=== PATIENT | female | born 1990 | race American Indian/Alaskan Native ===

== ENCOUNTER 2017-04-09 12:41 | Inpatient (IN) | payer MEDICAID ==
[2017-04-09 13:03] LABS: Urine Drugs of Abuse Note Disclamer
[2017-04-09] MEDS ORDERED: ZOFRAN ONE (13:22)
--- NOTE | 2017-04-09 13:28 | History and Physical Report ---
History of Present Illness Chief complaint: I.... I dont feel good, can i have pain medicine History of present illness: 27 YO Female with SLE, HTN, RI, OA, Raynauds Disease presents to ED for evaluation. Pt unable to provide detailed history, but history taken from family and ED staff. Pt family report that patient has been feeling ill for the past day with worsening symptoms over the past 4 hours. Pt had been complaining of chest pain and difficulty breathing earlier in the day, and was found by family to be confused and minimally responsive. EMS notified, and upon arrival EMS reports that the patient was hypotensive and lethargic, and was also noted to be vomiting as well. Patient acknowledges subjective fever, but denies chills, syncope, difficulty breathing, BPBPR, Falls, Trauma, productive cough, or recent ill contacts,or taking any pain medication today. Past History Past Medical History: GERD, hypertension, other (Lupus, Raynauds Disease) Past Surgical History: No surgical history, Other (reviewed) Social history: single, lives with family. denies: smoking, alcohol abuse, prescription drug abuse, IV drug use Family history: diabetes, hypertension Medications and Allergies Allergies Allergy/AdvReac Type Severity Reaction Status Date / Time No Known Allergies Allergy Verified 11/27/14 07:31 Home Medications Medication Instructions Recorded Confirmed Last Taken Type Aspirin [Aspirin BABY CHEW TAB] 81 mg PO ONCE 10/25/13 05/24/15 11/26/14 21:00 History NIFEdipine [NIFEdipine ER] 60 mg PO DAILY 10/25/13 05/24/15 02/13/15 History hydrOXYzine HCL [Atarax] 25 mg PO BID 11/27/14 05/24/15 02/13/15 History oxyCODONE /ACETAMINOPHEN [Percocet 1 tab PO Q6HR PRN #14 tablet 11/27/14 Unknown Rx 5/325 mg] predniSONE [Deltasone] 20 mg PO BID #8 tablet 11/27/14 05/24/15 02/12/15 Rx Gabapentin 300 mg PO HS 02/13/15 05/24/15 Unknown History Hydroxychloroquine 200 mg PO DAILY 02/13/15 05/24/15 02/13/15 History Mycophenolate [Cellcept] 1,000 mg PO BID 02/13/15 05/24/15 02/12/15 History Review of Systems ROS unobtainable: due to mental status Exam - Constitutional Vitals: Temp Pulse Resp BP Pulse Ox 98.4 F 94 H 12 133/94 95 04/09/17 12:56 04/09/17 12:49 04/09/17 12:49 04/09/17 12:47 04/09/17 12:47 General appearance: Present: mild distress, obese - EENT Eyes: Present: PERRL ENT: hearing intact, clear oral mucosa - Neck Neck: Present: supple, normal ROM - Respiratory Respiratory effort: labored Respiratory: bilateral: diminished - Cardiovascular Rhythm: other (tachycardic) Heart Sounds: Present: S1 & S2. Absent: rub, click - Extremities Extremities: pulses symmetrical, No edema Extremity abnormal: edema, other (capillary refills: 4 seconds) Peripheral Pulses: within normal limits - Abdominal General gastrointestinal: Present: soft, distended, hypoactive bowel sounds. Absent: hepatomegaly, splenomegaly, mass, hernia Female genitourinary: Present: normal - Integumentary Integumentary: Present: clear, dry, decreased turgor - Musculoskeletal Musculoskeletal: generalized weakness - Psychiatric Psychiatric: no intact judgment & insight, no memory intact - Neurologic Neurologic: CNII-XII intact, moves all extremities, no gait normal Results - Labs CBC & Chem 7: 04/09/17 13:19 04/09/17 13:19 Assessment and Plan - Patient Problems (1) Sepsis Current Visit: Yes Status: Acute Qualifiers: Sepsis type: S Plan to address problem: Iv abx, IVF, supportive care, monitor uop q shift, IVF bolus as per protocol, serial lactic acid level, blood cultures, (2) Lactic acidosis Current Visit: Yes Status: Acute Plan to address problem: IVF, supportive care, repeat lactic acid level (3) ARF (acute renal failure) Current Visit: Yes Status: Acute Qualifiers: Acute renal failure type: A Plan to address problem: IVF replacement, monitor uop q shift, positive fluid balance, urine electrolytes (4) Toxic encephalopathy Current Visit: Yes Status: Acute Plan to address problem: Treat sepsis, supportive care, neuro checks (5) Lupus (systemic lupus erythematosus) Current Visit: No Status: Acute Qualifiers: Systemic lupus erythematosus type: S Systemic lupus erythematosus organ involvement: S Plan to address problem: Resume home medications, Cellcept, steroids, supportive care. (6) DVT prophylaxis Current Visit: No Status: Acute
[2017-04-09 13:29] LABS: ABG Base Excess -6.8 mmol/L (-2.0-3.0); ABG HCO3 12.3 mmol/L (20.0-26.0); ABG Oxygen Saturation 99.2 % (95.0-99.0); ABG PCO2 14.7 mm Hg; ABG PH 7.542 pH Units (7.350-7.450); ABG PO2 162.5 mm Hg (80.0-90.0)
[2017-04-09 13:33] LABS: Basophils % (Auto) 0.9 % (0.0-1.8); Eosinophils % (Auto) 0.2 % (0.0-4.3); Hematocrit 44.1 % (30.3-42.9); Mean Corpuscular HGB Conc 32 % (30-34); Mean Corpuscular Hemoglobin 27 pg (28-32); Mean Corpuscular Volume 85 fl (79-97); Platelet Count 470 K/mm3 (140-440); Red Blood Count 5.16 M/mm3 (3.65-5.03); White Blood Count 12.5 K/mm3 (4.5-11.0)
[2017-04-09] MEDS ORDERED: ZOFRAN IV ONE (13:33)
--- NOTE | 2017-04-09 13:41 | Emergency Department Report ---
ED Altered Mental Status HPI - General Chief Complaint: Altered Mental Status Stated Complaint: ROBERT/LUPUS Time Seen by Provider: 04/09/17 12:47 Source: EMS Mode of arrival: Stretcher Limitations: Altered Mental Status - History of Present Illness Initial Comments: 27-year-old female presents to the emergency department via EMS for evaluation of altered mental status. EMS states that they found the patient minimally responsive at home. Per report, the patient had been complaining of chest pain and difficulty breathing earlier in the day. EMS reports that the patient was hypotensive on arrival. She was also noted to be vomiting as well. Patient denies taking any pain medication today. When asked if she isn't in any pain at this time, the patient places her hands on her abdomen. Further history is unable to be obtained from patient due to her clinical condition. MD Complaint: altered mental status -: Gradual, This morning Severity: moderate Consistency of Symptoms: waxing and waning Context: unknown Associated Symptoms: chest pain, nausea/vomiting, shortness of breath Treatments Prior to Arrival: IV fluid, oxygen - Related Data Home Medications Medication Instructions Recorded Confirmed Last Taken Aspirin [Aspirin BABY CHEW TAB] 81 mg PO ONCE 10/25/13 05/24/15 11/26/14 21:00 NIFEdipine [NIFEdipine ER] 60 mg PO DAILY 10/25/13 05/24/15 02/13/15 hydrOXYzine HCL [Atarax] 25 mg PO BID 11/27/14 05/24/15 02/13/15 Gabapentin 300 mg PO HS 02/13/15 05/24/15 Unknown Hydroxychloroquine 200 mg PO DAILY 02/13/15 05/24/15 02/13/15 Mycophenolate [Cellcept] 1,000 mg PO BID 02/13/15 05/24/15 02/12/15 Previous Rx's Medication Instructions Recorded Last Taken Type oxyCODONE /ACETAMINOPHEN [Percocet 1 tab PO Q6HR PRN #14 tablet 11/27/14 Unknown Rx 5/325 mg] predniSONE [Deltasone] 20 mg PO BID #8 tablet 11/27/14 02/12/15 Rx Allergies Allergy/AdvReac Type Severity Reaction Status Date / Time No Known Allergies Allergy Verified 11/27/14 07:31 ED Review of Systems ROS: Stated complaint: ROBERT/LUPUS Other details as noted in HPI Comment: Unobtainable due to pts medical conditions ED Past Medical Hx - Past Medical History Previous Medical History?: Yes Hx Hypertension: Yes Hx Heart Attack/AMI: Yes ([place] 2011,) Hx Congestive Heart Failure: No Hx Diabetes: No Hx Deep Vein Thrombosis: No Hx Pulmonary Embolism: No Hx Renal Disease: No Hx Sickle Cell Disease: No Hx Arthritis: Yes Hx Kidney Stones: No Hx Asthma: No Hx COPD: No Hx Tuberculosis: No Hx HIV: No Additional medical history: lupus, Raynaud Disease - Surgical History Past Surgical History?: Yes Hx Coronary Stent: No Hx Open Heart Surgery: No Hx Pacemaker: No Hx Internal Defibrillator: No Hx Cholecystectomy: No Hx Appendectomy: No Hx Breast Surgery: No Additional Surgical History: x4 - Social History Smoking Status: Unknown if ever smoked - Medications Home Medications: Home Medications Medication Instructions Recorded Confirmed Last Taken Type Aspirin [Aspirin BABY CHEW TAB] 81 mg PO ONCE 10/25/13 05/24/15 11/26/14 21:00 History NIFEdipine [NIFEdipine ER] 60 mg PO DAILY 10/25/13 05/24/15 02/13/15 History hydrOXYzine HCL [Atarax] 25 mg PO BID 11/27/14 05/24/15 02/13/15 History oxyCODONE /ACETAMINOPHEN [Percocet 1 tab PO Q6HR PRN #14 tablet 11/27/14 Unknown Rx 5/325 mg] predniSONE [Deltasone] 20 mg PO BID #8 tablet 11/27/14 05/24/15 02/12/15 Rx Gabapentin 300 mg PO HS 02/13/15 05/24/15 Unknown History Hydroxychloroquine 200 mg PO DAILY 02/13/15 05/24/15 02/13/15 History Mycophenolate [Cellcept] 1,000 mg PO BID 02/13/15 05/24/15 02/12/15 History ED Physical Exam - General Limitations: Altered Mental Status General appearance: in no apparent distress, lethargic - Head Head exam: Present: atraumatic, normocephalic - Eye Eye exam: Present: normal appearance, PERRL, EOMI - ENT ENT exam: Present: normal exam, normal orophraynx, mucous membranes moist - Neck Neck exam: Present: normal inspection, full ROM. Absent: tenderness - Respiratory Respiratory exam: Present: normal lung sounds bilaterally. Absent: respiratory distress - Cardiovascular Cardiovascular Exam: Present: regular rate, normal rhythm, normal heart sounds - GI/Abdominal GI/Abdominal exam: Present: soft, tenderness (patient moans with palpation of her abdomen in all quadrants), normal bowel sounds. Absent: distended - Extremities Exam Extremities exam: Present: normal inspection, full ROM. Absent: tenderness - Back Exam Back exam: Present: normal inspection, full ROM. Absent: tenderness - Neurological Exam Neurological exam: Present: altered. Absent: motor sensory deficit - Skin Skin exam: Present: warm, diaphoretic ED Course Vital Signs 04/09/17 04/09/17 04/09/17 12:36 12:40 12:47 Temperature Pulse Rate 94 H Respiratory 24 Rate Blood Pressure 133/94 133/94 O2 Sat by Pulse 100 100 95 Oximetry 04/09/17 04/09/17 04/09/17 12:49 12:50 12:56 Temperature 98.4 F Pulse Rate 94 H 95 H Respiratory 12 33 H Rate Blood Pressure 133/97 O2 Sat by Pulse Oximetry 04/09/17 04/09/17 04/09/17 13:00 13:10 13:20 Temperature Pulse Rate 92 H 95 H 94 H Respiratory 32 H 35 H 29 H Rate Blood Pressure 133/97 119/79 119/79 O2 Sat by Pulse 100 99 Oximetry 04/09/17 04/09/17 04/09/17 13:30 13:40 13:43 Temperature Pulse Rate 100 H 89 Respiratory 24 17 16 Rate Blood Pressure 119/79 170/89 O2 Sat by Pulse 100 99 Oximetry 04/09/17 04/09/17 04/09/17 13:58 14:00 14:11 Temperature Pulse Rate 96 H 101 H Respiratory 22 25 H Rate Blood Pressure 133/97 119/84 142/86 O2 Sat by Pulse 98 100 99 Oximetry 04/09/17 04/09/17 14:20 14:30 Temperature Pulse Rate Respiratory Rate Blood Pressure 142/86 142/86 O2 Sat by Pulse 100 96 Oximetry - Lab Data Result diagrams: 04/09/17 13:19 04/09/17 13:19 Lab Results 04/09/17 04/09/17 04/09/17 Range/Units 12:42 13:14 13:19 WBC 12.5 H (4.5-11.0) K/mm3 RBC 5.16 H (3.65-5.03) M/mm3 Hgb 14.0 (10.1-14.3) gm/dl Hct 44.1 H (30.3-42.9) % MCV 85 (79-97) fl MCH 27 L (28-32) pg MCHC 32 (30-34) % RDW 15.0 (13.2-15.2) % Plt Count 470 H (140-440) K/mm3 Lymph % (Auto) 11.9 L (13.4-35.0) % [place] % (Auto) 8.2 H (0.0-7.3) % Eos % (Auto) 0.2 (0.0-4.3) % Baso % (Auto) 0.9 (0.0-1.8) % Lymph # 1.5 (1.2-5.4) K/mm3 [place] # 1.0 H (0.0-0.8) K/mm3 Eos # 0.0 (0.0-0.4) K/mm3 Baso # 0.1 (0.0-0.1) K/mm3 Seg Neutrophils % 78.8 H (40.0-70.0) % Seg Neutrophils # 9.8 H (1.8-7.7) K/mm3 PT (12.2-14.9) Sec. INR (0.87-1.13) APTT (24.2-36.6) Sec. ABG pH 7.542 H (7.350-7.450) pH Units ABG pCO2 14.7 mm Hg ABG pO2 162.5 H (80.0-90.0) mm Hg ABG HCO3 12.3 L (20.0-26.0) mmol/L ABG O2 Saturation 99.2 H (95.0-99.0) % ABG O2 Content 19.7 (0.0-44) ABG Base Excess -6.8 L (-2.0-3.0) mmol/L ABG Hemoglobin 14.2 (12.0-16.0) gm/dl ABG Carboxyhemoglobin 2.1 (0.0-5.0) % ABG Methemoglobin 0.5 (0.0-1.5) % Oxyhemoglobin 96.7 (95.0-99.0) % FiO2 32 % Sodium (137-145) mmol/L Potassium (3.6-5.0) mmol/L Chloride (98-107) mmol/L Carbon Dioxide (22-30) mmol/L Anion Gap mmol/L BUN (7-17) mg/dL Creatinine (0.7-1.2) mg/dL Estimated GFR ml/min BUN/Creatinine Ratio % Glucose (65-100) mg/dL Lactic Acid (0.7-2.0) mmol/L Calcium (8.4-10.2) mg/dL Total Bilirubin (0.1-1.2) mg/dL AST (5-40) units/L ALT (7-56) units/L Alkaline Phosphatase (35-129) units/L Troponin T (0.00-0.029) ng/mL Total Protein (6.3-8.2) g/dL Albumin (3.9-5) g/dL Albumin/Globulin Ratio % HCG, Qual (Negative) Salicylates (2.8-20.0) mg/dL Urine Opiates Screen Presumptive negative Urine Methadone Screen Presumptive negative Acetaminophen (10.0-30.0) ug/mL Ur Barbiturates Screen Presumptive negative Ur Phencyclidine Scrn Presumptive negative Ur Amphetamines Screen Presumptive negative U Benzodiazepines Scrn Presumptive negative Urine Cocaine Screen Presumptive negative U Marijuana (THC) Screen Presumptive positive Drugs of Abuse Note Disclamer 04/09/17 04/09/17 04/09/17 Range/Units 13:19 13:19 13:19 WBC (4.5-11.0) K/mm3 RBC (3.65-5.03) M/mm3 Hgb (10.1-14.3) gm/dl Hct (30.3-42.9) % MCV (79-97) fl MCH (28-32) pg MCHC (30-34) % RDW (13.2-15.2) % Plt Count (140-440) K/mm3 Lymph % (Auto) (13.4-35.0) % [place] % (Auto) (0.0-7.3) % Eos % (Auto) (0.0-4.3) % Baso % (Auto) (0.0-1.8) % Lymph # (1.2-5.4) K/mm3 [place] # (0.0-0.8) K/mm3 Eos # (0.0-0.4) K/mm3 Baso # (0.0-0.1) K/mm3 Seg Neutrophils % (40.0-70.0) % Seg Neutrophils # (1.8-7.7) K/mm3 PT 13.1 (12.2-14.9) Sec. INR 0.95 (0.87-1.13) APTT 28.0 (24.2-36.6) Sec. ABG pH (7.350-7.450) pH Units ABG pCO2 mm Hg ABG pO2 (80.0-90.0) mm Hg ABG HCO3 (20.0-26.0) mmol/L ABG O2 Saturation (95.0-99.0) % ABG O2 Content (0.0-44) ABG Base Excess (-2.0-3.0) mmol/L ABG Hemoglobin (12.0-16.0) gm/dl ABG Carboxyhemoglobin (0.0-5.0) % ABG Methemoglobin (0.0-1.5) % Oxyhemoglobin (95.0-99.0) % FiO2 % Sodium 137 (137-145) mmol/L Potassium 4.3 (3.6-5.0) mmol/L Chloride 100.6 (98-107) mmol/L Carbon Dioxide 14 L (22-30) mmol/L Anion Gap 27 mmol/L BUN 26 H (7-17) mg/dL Creatinine 2.6 H (0.7-1.2) mg/dL Estimated GFR 26 ml/min BUN/Creatinine Ratio 10.00 % Glucose 112 H (65-100) mg/dL Lactic Acid 3.00 H* (0.7-2.0) mmol/L Calcium 9.4 (8.4-10.2) mg/dL Total Bilirubin 0.60 (0.1-1.2) mg/dL AST 18 (5-40) units/L ALT 11 (7-56) units/L Alkaline Phosphatase 93 (35-129) units/L Troponin T < 0.010 (0.00-0.029) ng/mL Total Protein 8.9 H (6.3-8.2) g/dL Albumin 3.8 L (3.9-5) g/dL Albumin/Globulin Ratio 0.7 % HCG, Qual (Negative) Salicylates (2.8-20.0) mg/dL Urine Opiates Screen Urine Methadone Screen Acetaminophen (10.0-30.0) ug/mL Ur Barbiturates Screen Ur Phencyclidine Scrn Ur Amphetamines Screen U Benzodiazepines Scrn Urine Cocaine Screen U Marijuana (THC) Screen Drugs of Abuse Note 04/09/17 04/09/17 04/09/17 Range/Units 13:19 13:19 13:19 WBC (4.5-11.0) K/mm3 RBC (3.65-5.03) M/mm3 Hgb (10.1-14.3) gm/dl Hct (30.3-42.9) % MCV (79-97) fl MCH (28-32) pg MCHC (30-34) % RDW (13.2-15.2) % Plt Count (140-440) K/mm3 Lymph % (Auto) (13.4-35.0) % [place] % (Auto) (0.0-7.3) % Eos % (Auto) (0.0-4.3) % Baso % (Auto) (0.0-1.8) % Lymph # (1.2-5.4) K/mm3 [place] # (0.0-0.8) K/mm3 Eos # (0.0-0.4) K/mm3 Baso # (0.0-0.1) K/mm3 Seg Neutrophils % (40.0-70.0) % Seg Neutrophils # (1.8-7.7) K/mm3 PT (12.2-14.9) Sec. INR (0.87-1.13) APTT (24.2-36.6) Sec. ABG pH (7.350-7.450) pH Units ABG pCO2 mm Hg ABG pO2 (80.0-90.0) mm Hg ABG HCO3 (20.0-26.0) mmol/L ABG O2 Saturation (95.0-99.0) % ABG O2 Content (0.0-44) ABG Base Excess (-2.0-3.0) mmol/L ABG Hemoglobin (12.0-16.0) gm/dl ABG Carboxyhemoglobin (0.0-5.0) % ABG Methemoglobin (0.0-1.5) % Oxyhemoglobin (95.0-99.0) % FiO2 % Sodium (137-145) mmol/L Potassium (3.6-5.0) mmol/L Chloride (98-107) mmol/L Carbon Dioxide (22-30) mmol/L Anion Gap mmol/L BUN (7-17) mg/dL Creatinine (0.7-1.2) mg/dL Estimated GFR ml/min BUN/Creatinine Ratio % Glucose (65-100) mg/dL Lactic Acid (0.7-2.0) mmol/L Calcium (8.4-10.2) mg/dL Total Bilirubin (0.1-1.2) mg/dL AST (5-40) units/L ALT (7-56) units/L Alkaline Phosphatase (35-129) units/L Troponin T (0.00-0.029) ng/mL Total Protein (6.3-8.2) g/dL Albumin (3.9-5) g/dL Albumin/Globulin Ratio % HCG, Qual Negative (Negative) Salicylates < 0.3 L (2.8-20.0) mg/dL Urine Opiates Screen Urine Methadone Screen Acetaminophen < 15.0 (10.0-30.0) ug/mL Ur Barbiturates Screen Ur Phencyclidine Scrn Ur Amphetamines Screen U Benzodiazepines Scrn Urine Cocaine Screen U Marijuana (THC) Screen Drugs of Abuse Note - EKG Data -: EKG Interpreted by Ma EKG shows normal: sinus rhythm, axis, intervals, QRS complexes, ST-T waves Rate: normal When compared to previous EKG there are: previous EKG unavailable Interpretation: normal EKG - Radiology Data Radiology results: report reviewed, image reviewed CT of the head is read as normal. CT of the chest shows nonspecific bilateral axillary adenopathy. CT of the abdomen and pelvis shows nonspecific adenopathy and multiple locations in the abdomen. The number of notes seen throughout the chest and abdomen are worrisome, lymphoma would be the primary diagnostic consideration. - Medical Decision Making Lab and imaging results reviewed. IV fluids being administered. Patient had multiple episodes of bilious vomiting. Patient is to be admitted by the hospitalist. - Differential Diagnosis drug intoxication, ACS, bowel obstruction, mesenteric ischemia Critical care attestation.: If time is entered above; I have spent that time in minutes in the direct care of this critically ill patient, excluding procedure time. ED Disposition Clinical Impression: Elevated lactic acid level, Somnolence Acute on chronic renal failure Qualifiers: Acute renal failure type: with acute tubular necrosis Chronic kidney disease stage: unspecified stage Qualified Code(s): N17.0 - Acute kidney failure with tubular necrosis; N18.9 - Chronic kidney disease, unspecified Disposition: OP ADMIT IP TO THIS HOSP Is pt being admited?: Yes Condition: Stable Referrals: PRIMARY CAREMD [Primary Care Provider] - 3-5 Days Time of Disposition: 16:02
--- NOTE | 2017-04-09 13:44 | Admit Criteria Form ---
Admission Criteria Documentation: MENTAL STATUS CHANGE Clinical Indications for Inpatient Care (Place 'X' for any and all applicable criteria): Ongoing inpatient care may be needed for 1 or more of the following(1)(2)(3)(5)( 6): [X ]I. Suspected serious etiology (eg, medical disorder, [employer] event) of altered mental status [ ]II. Danger to self or others not manageable at lower level of care [ ]III. Grave disability (eg, inability to perform self care necessary at lower level of care) [ ]IV. Agitation or inappropriate behavior interfering with care for primary condition (eg, attempting to discontinue lines or drains prematurely, unable to cooperate with respiratory care) [ ]V. Delirium [A] [D][E] as described by 1 or more of the following(26): [ ]a) Delirium due to alcohol or sedative [F] withdrawal [ ]b) Delirium of uncertain etiology that has not responded to appropriate empiric treatment [ ]c) Delirium that prevents performance of a life-sustaining function (eg, feeding or hydrating oneself) [ X]. General contraindications and/or Inappropriate clinical situations for Observational Care in patients with Mental Status Change, when ANY ONE of the following is required: [X ]a) Prediction of prolongation of LOS based on ANY ONE of the following may be considered as a contraindication for observational care 2, 3, 4, 5, 6, 7, 8, 9, 10, 11 [ ]i) Age > 65 yrs. [ X]ii) Patient arriving by ambulance [ ]iii) Patient with high acuity [ ]iv) Patient requiring vital sign monitoring [ ]v) Patient on IV medication [ ]b) Systolic blood pressures greater than or equal to 180mmHg 3, 12 [ ]c) Patient with altered mental status including delirium and other alteration of consciousness, (3) [ ]d) Patient whose discharge disposition will be to a fpc home or rehabilitation home should not be managed in Emergency Department Observation Unit. CMS rule requires 3 days hospital stay before such placement.3,13 [ ]e) Patient with failure to thrive due to broad array of etiologies 3,16,17 [ ]f) Inability to ambulate 3,14 Extended stay beyond goal length of stay for the primary condition may be needed until ALL of the following are present(3)(5): [ ]a) Underlying medical etiology of mental status change is absent, or has been established and adequately treated [ ]b) Danger to self or others is absent or manageable at lower level of care. [ ]c) Behavior crisis management, including physical or chemical restraints, is not required or available at lower level of car [ ]d) Substance or alcohol withdrawal is absent or manageable at lower level of care. [ ]e) Behavioral symptoms (eg, agitation, somnolence, inappropriate behavior) are absent, or are manageable at lower level of care. The original [facility] [employer] content created by [facility] has been revised. The portions of the content which have been revised are identified through the use of italic text or in bold, and [facility] has neither reviewed nor approved the modified material. All other unmodified content is copyright [facility]. Please see references footnoted in the original [facility] edition 2016 Admission Criteria Met: Yes
[2017-04-09 13:45] LABS: INR 0.95 (0.87-1.13)
[2017-04-09 14:07] LABS: Alanine Aminotransferase 11 units/L (7-56); Albumin 3.8 g/dL (3.9-5); Albumin/Globulin Ratio 0.7 %; Alkaline Phosphatase 93 units/L (35-129); Anion Gap 27 mmol/L; Blood Urea Nitrogen 26 mg/dL (7-17); Calcium 9.4 mg/dL (8.4-10.2); Carbon Dioxide 14 mmol/L (22-30); Chloride 100.6 mmol/L (98-107); Glucose 112 mg/dL (65-100); Potassium 4.3 mmol/L (3.6-5.0); Sodium 137 mmol/L (137-145); Total Protein 8.9 g/dL (6.3-8.2)
[2017-04-09] MEDS ORDERED: NACL ONE (14:38)
[2017-04-09] MEDS ORDERED: REGLAN ONE (15:16)
[2017-04-09] MEDS ORDERED: BENADRYL ONE (15:16)
[2017-04-09] MEDS ORDERED: REGLAN IV ONE (15:31)
--- NOTE | 2017-04-09 15:33 | Cat Scan Report ---
CRANIAL CT SCAN: History: Altered mental status. Findings: Serial contiguous axial images were obtained through the cranium. Intravenous contrast material was not administered. The ventricles are normal in size and appearance. There is no mass effect or midline shift. No areas of abnormally increased or decreased attenuation are seen. No mass lesion is seen. The mastoid air cells and visualized portions of the sinuses are normal. IMPRESSION: Cranial CT scan within normal limits.
--- NOTE | 2017-04-09 15:42 | Cat Scan Report ---
CT of the chest without contrast. History: Dyspnea. Findings: The mediastinum and hilar regions are normal. The lungs are clear. There is no pleural fluid. Numerous lymph nodes are seen in the axillary regions bilaterally. Most of these are quite small to borderline in size, but one node measuring 2.2 cm is seen in the right axilla. The largest node seen in the left axilla measures 1.9 cm in diameter. A few small nodes are seen in the internal mammary chains bilaterally. Impression: Bilateral nonspecific axillary adenopathy.
[2017-04-09] MEDS ORDERED: DUONEB *Not for PRN Use IH (15:47)
[2017-04-09] MEDS ORDERED: TYLENOL PO PRN (15:47)
[2017-04-09] MEDS ORDERED: ZOFRAN IV PRN (15:47)
--- NOTE | 2017-04-09 15:51 | Cat Scan Report ---
CT of the abdomen and pelvis without contrast. History: Abdominal pain. Findings: The liver, spleen, pancreas, and gallbladder appear normal. The kidneys are normal in size and configuration with no evidence of mass or hydronephrosis. Numerous small nodes are seen throughout the mesenteric region and in the retroperitoneum primarily in the periaortic area. Borderline size nodes are seen medial to the spleen. The largest node in the left aortic region measures 1.7 cm in diameter. There is a small fluid collection in the cul-de-sac. Multiple small nodes are seen in the inguinal regions bilaterally. Small nodes are also seen in the internal iliac chain. Impression: Again nonspecific adenopathy is seen in multiple locations as described above. The size of most of the nodes are small, but the number of nodes seen throughout the chest and abdomen are somewhat worrisome. Lymphoma would be the primary diagnostic consideration. Clinical correlation is advised. 2. Nonspecific free fluid in the cul-de-sac.
[2017-04-09] MEDS ORDERED: PROVENTIL IH PRN (15:53)
[2017-04-09] MEDS ORDERED: NACL 0.9% 1000 ML IV ONE (16:00)
[2017-04-09] MEDS ORDERED: BENADRYL IV ONE (16:00)
[2017-04-09] MEDS ORDERED: PERCOCET 5/325 PO PRN (16:03)
[2017-04-09] MEDS ORDERED: BABY ASPIRIN PO SCH (17:00)
[2017-04-09] MEDS ORDERED: NACL 0.9% 1000 ML 2,000 ML ONE (17:18)
[2017-04-09] MEDS ORDERED: ZOSYN/NS 3.375GM/50ML 3.375 GM/50 ML BAG IV ONE (17:38)
[2017-04-09] MEDS: ZOSYN/NS 3.375GM/50ML 3.375 GM/50 ML BAG IV SCH (17:51)
[2017-04-09] MEDS ORDERED: ZOSYN/NS 4.5GM/100ML 4.5 GM/100 ML VIAL IV SCH (22:00)
[2017-04-09] MEDS ORDERED: NEURONTIN PO SCH (22:00)
[2017-04-09] MEDS: CELLCEPT PO SCH (22:35)
[2017-04-09] MEDS: ATARAX PO SCH (22:35)
[2017-04-10] MEDS: ZOSYN/NS 3.375GM/50ML 3.375 GM/50 ML BAG IV SCH (01:12)
[2017-04-10 08:21] LABS: Bilirubin,Urine NEG (Negative); Blood,Urine NEG (Negative); Ketones,Urine NEG (Negative); Leukocyte Esterase,Urine NEG (Negative); Mucus,Urine FEW /HPF; Nitrite,Urine NEG (Negative); Protein,Urine <15 mg/dL mg/dL (Negative); Urobilinogen,Urine < 2.0 mg/dL (<2.0); WBC,Urine < 1.0 /HPF (0.0-6.0)
[2017-04-10 09:10] VITALS: BP 122/62
[2017-04-10] MEDS: ATARAX PO SCH (09:13)
[2017-04-10] MEDS: CELLCEPT PO SCH (09:13)
[2017-04-10] MEDS ORDERED: PLAQUENIL PO SCH (10:00)
[2017-04-10] MEDS ORDERED: PROCARDIA XL PO SCH (10:00)
[2017-04-10] MEDS ORDERED: NON-FORMULARY (Hydroxychloroquine 200 MG) PO SCH (10:00)
[2017-04-10] MEDS ORDERED: NON-FORMULARY (Nifedipine [Nifedipine Er] 60 MG) PO SCH (10:00)
--- NOTE | 2017-04-10 11:24 | XRay Report ---
AP CHEST :04/09/17 16:47 CLINICAL: Shortness of breath. COMPARISON:10/25/13 FINDINGS: Normal heart and pulmonary vasculature. The lungs are normally expanded and clear. The bones and soft tissues are normal.A nasogastric tube is satisfactory. IMPRESSION: Normal chest.
--- NOTE | 2017-04-10 11:51 | Discharge Summary ---
Providers - Providers Date of Admission: 04/09/17 15:47 Date of discharge: 04/10/17 Attending physician: PAULO YOUNG Primary care physician: SOLOIST DANCER Hospitalization Condition: Stable Hospital course: Patient was seen and examined. She is 27-year-old woman with history of lupus, OK, CK D3, arthritis, hypertension and GERD who presents with nausea vomiting diarrhea leading to hypotension, dehydration and altered mental status with lethargy. Urine drug screen positive for marijuana. test negative. CT abdomen and pelvis without contrast multiple findings suggesting adenopathy CT of the chest without contrast also bilateral adenopathy. PCO2 was only 14.7. She denies any alcohol abuse but no alcohol level was checked. White blood cell count was 12.5. Patient had similar episodes of lupus flare In the past. She is fully awake but poor judgment but cognition seems intact. Creatinine is 2.6, last creatinine May 2015 was 1.4. She was told she had kidney problems that she been followed by residential manager is Dr. [place]regoso [place] in [place], [place]. She wants to follow-up with him only and does not want to stay. She wants to go home because she feels better because the nausea vomiting diarrhea and generalized abdominal pains which all resolved. -Acute gastroenteritis -Drug abuse with marijuana -Acute toxic metabolic encephalopathy -Acute renal failure, ATN with hypotension present on admission -Hypotension resolved -SLE Disposition: DC-07 LEFT AGAINST MED ADVICE Time spent for discharge: 33 min Core Measure Documentation - Palliative Care Palliative Care/ Comfort Measures: Not Applicable - Core Measures Any of the following diagnoses?: none - VTE Discharge Requirements Deep Vein Thrombosis/Pulmonary Embolism Present on Admission: No Has pt received <5 days of overlap therapy or INR<2.0: No Anticoagulant overlap therapy prescribed at discharge: No Contraindication No Overlap Therapy order at DC: Not Indicated Exam - Physical Exam Narrative exam: GEN: WDWN, morbidly obese BMI 41.7 NAD, AWAKE, ALERT, ORIENTATED x 3 HEENT: NCAT, PERRL, EOMI, OP CLEAR NECK: SUPPLE, NO THYROMEGALY, NO JVD, NO LAD CVS: RRR, NORMAL S1S2 LUNGS/CHEST: CTA B, NORMAL CHEST EXPANSION B, GOOD AIR ENTRY B ABD: SOFT, diffuse tenderness without distention GBS, NO REBOUND OR GUARDING EXT/SKIN: NO SIGNIFICANT EDEMA OR RASH MSK: FROM X 4 EXTREMITIES NEURO: CN 2-12 GROSSLY INTACT, NO FOCAL DEFICITS PSY: CALM - Constitutional Vitals: Temp Pulse Resp BP Pulse Ox 97.9 F 80 18 122/62 98 04/10/17 08:00 04/10/17 08:00 04/10/17 08:00 04/10/17 08:00 04/10/17 08:52 Plan Follow up with: PRIMARY CARE, [Primary Care Provider] - 3-5 Days
[2017-04-10] MEDS ORDERED: ZOSYN/NS 2.25 GM/50ML 2.25 GM/50 ML BAG IV SCH (12:00)
== END 2017-04-10 10:00 | disposition left against medical advice (07) | DRG 871 ==
LOC: ED 12:41 → 3A 15:47
PROVIDERS: ADMIT Internal Medicine; ATTEND Internal Medicine
PROC: 4A033R1 Measurement of Arterial Saturation, Peripheral, Percutaneous Approach (ICD-10-PCS; principal; 2017-04-09)
DX: A41.9 Sepsis, unspecified organism (principal); G92 Toxic encephalopathy; N17.0 Acute kidney failure with tubular necrosis; M32.9 Systemic lupus erythematosus, unspecified; K21.9 Gastro-esophageal reflux disease without esophagitis; I10 Essential (primary) hypertension; Z53.21 Procedure and treatment not carried out due to patient leaving prior to being seen by health care provider; M19.90 Unspecified osteoarthritis, unspecified site; I12.9 Hypertensive chronic kidney disease with stage 1 through stage 4 chronic kidney disease, or unspecified chronic kidney disease; K52.9 Noninfective gastroenteritis and colitis, unspecified; F12.10 Cannabis abuse, uncomplicated; N18.3 Chronic kidney disease, stage 3 (moderate); Z83.3 Family history of diabetes mellitus; Z82.49 Family history of ischemic heart disease and other diseases of the circulatory system; I25.2 Old myocardial infarction
CPT/HCPCS: 36415; 70450; 71010; 71250; 74176; 80053; 80307; 80320; 81001; 82140; 82570; 82803; 84300; 84484; 84703; 85025; 85610; 85730; 87040; 93005; 93010; 94760; 96374; 96375; G0480; J1200; J2405; J2543; J2765; J2920; J7030; J7517

== ENCOUNTER 2017-10-12 21:07 | Emergency (ER) | payer OTHER, MEDICAID ==
[2017-10-12] MEDS ORDERED: TYLENOL PO ONE (23:05)
[2017-10-12] MEDS ORDERED: TYLENOL ONE (23:08)
[2017-10-13 02:10] LABS: Bilirubin,Urine NEG (Negative); Blood,Urine NEG (Negative); Color,Urine Straw (Yellow); Mucus,Urine FEW /HPF; Nitrite,Urine NEG (Negative); Protein,Urine <15 mg/dL mg/dL (Negative); RBC,Urine < 1.0 /HPF (0.0-6.0); Urobilinogen,Urine < 2.0 mg/dL (<2.0)
[2017-10-13 02:11] LABS: HCG Qualitative,Urine Negative (Negative)
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
[2017-10-13] MEDS ORDERED: ULTRAM ONE (03:36)
[2017-10-13] MEDS ORDERED: ULTRAM PO ONE (03:36)
[2017-10-13] MEDS ORDERED: NORCO 5/325 PO ONE (05:39)
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
[2017-10-13 06:36] VITALS: BP 125/80
== END 2017-10-13 06:31 | disposition home or self-care (01) ==
LOC: ED 21:07
DX: S00.83XA Contusion of other part of head, initial encounter (principal); V49.49XA Driver injured in collision with other motor vehicles in traffic accident, initial encounter; X58.XXXA Exposure to other specified factors, initial encounter; Y93.89 Activity, other specified; Y92.89 Other specified places as the place of occurrence of the external cause; Y99.8 Other external cause status
CPT/HCPCS: 70450; 81001; 81025

== ENCOUNTER 2020-06-09 10:22 | Emergency (ER) | payer MEDICARE ==
[2020-06-09 12:05] LABS: Basophils # (Auto) 0.1 K/mm3 (0.0-0.1); Basophils % (Auto) 2.1 % (0.0-1.8); Eosinophils # (Auto) 0.1 K/mm3 (0.0-0.4); Eosinophils % (Auto) 1.1 % (0.0-4.3); Hemoglobin 10.3 gm/dl (10.1-14.3); Lymphocytes # (Auto) 1.9 K/mm3 (1.2-5.4); Lymphocytes % (Auto) 27.3 % (13.4-35.0); Mean Corpuscular HGB Conc 34 % (30-34); Mean Corpuscular Volume 84 fl (79-97); Monocytes # (Auto) 0.9 K/mm3 (0.0-0.8); Monocytes % (Auto) 13.6 % (0.0-7.3); Platelet Count 271 K/mm3 (140-440); Red Blood Count 3.56 M/mm3 (3.65-5.03)
[2020-06-09 12:26] LABS: Albumin 3.7 g/dL (3.9-5); Calcium 8.5 mg/dL (8.4-10.2)
[2020-06-09] MEDS ORDERED: MORPHINE 4 MG/1 ML INJ IM ONE ×2 (12:38→14:41)
[2020-06-09] MEDS ORDERED: ONDANSETRON 4 MG/2 ML INJ IM ONE (12:38)
--- NOTE | 2020-06-09 12:41 | Emergency Department Report ---
ED Abdominal Pain HPI - General Chief Complaint: Abdominal Pain Stated Complaint: lupus/abd pain Time Seen by Provider: 06/09/20 12:33 Source: patient Mode of arrival: Ambulatory Limitations: No Limitations - History of Present Illness Initial Comments: Patient is a 30 years old female with history of end-stage renal disease on hemodialysis. Patient also had history of lupus with frequent flareup. Patient presented to the ER complaining of diffuse abdominal pain, crampy in nature associated with watery diarrhea for the last few days. Patient denied any fever or chills. Patient also denied any shortness of breath, chest pain, headache, weakness numbness or tingling sensation. Patient stated that her abdominal pain is similar to what she have before and she is refusing imaging. MD Complaint: abdominal pain -: days(s) Location: diffuse Radiation: none Migration to: no migration Severity scale (0 -10): 6 Quality: cramping - Related Data Home Medications Medication Instructions Recorded Confirmed Last Taken Aspirin [Aspirin BABY CHEW TAB] 81 mg PO ONCE 10/25/13 05/24/15 11/26/14 21:00 NIFEdipine [NIFEdipine ER] 60 mg PO DAILY 10/25/13 05/24/15 02/13/15 hydrOXYzine HCL [Atarax] 25 mg PO BID 11/27/14 05/24/15 02/13/15 Gabapentin 300 mg PO HS 02/13/15 05/24/15 Unknown Hydroxychloroquine 200 mg PO DAILY 02/13/15 05/24/15 02/13/15 Mycophenolate [Cellcept] 1,000 mg PO BID 02/13/15 05/24/15 02/12/15 Previous Rx's Medication Instructions Recorded Last Taken Type oxyCODONE /ACETAMINOPHEN [Percocet 1 tab PO Q6HR PRN #14 tablet 11/27/14 Unknown Rx 5/325 mg] predniSONE [Deltasone] 20 mg PO BID #8 tablet 11/27/14 02/12/15 Rx Acetaminophen/Codeine [Tylenol 1 tab PO Q8H PRN #15 tab 10/13/17 Unknown Rx /Codeine # 3 tab] Ondansetron [Zofran Odt] 4 mg PO Q8HR PRN #14 tab.rapdis 06/09/20 Unknown Rx traMADoL [Ultram] 50 mg PO Q6HR PRN #14 tablet 06/09/20 Unknown Rx Allergies Allergy/AdvReac Type Severity Reaction Status Date / Time hydromorphone [From Dilaudid] Allergy Hives Verified 06/09/20 14:40 ED Review of Systems ROS: Stated complaint: lupus/abd pain Other details as noted in HPI Comment: All other systems reviewed and negative Constitutional: denies: chills, fever Respiratory: denies: cough, shortness of breath, SOB with exertion Cardiovascular: denies: chest pain, palpitations Gastrointestinal: abdominal pain, diarrhea. denies: nausea, vomiting, constipation, hematemesis, melena, hematochezia Musculoskeletal: denies: back pain Neurological: denies: headache, weakness, numbness, paresthesias, confusion ED Past Medical Hx - Past Medical History Previous Medical History?: Yes Hx Hypertension: Yes Hx Heart Attack/AMI: Yes ([place] 2011,) Hx Congestive Heart Failure: No Hx Diabetes: No Hx Deep Vein Thrombosis: No Hx Pulmonary Embolism: No Hx Renal Disease: No Hx Sickle Cell Disease: No Hx Arthritis: Yes Hx Kidney Stones: No Hx Asthma: No Hx COPD: No Hx Tuberculosis: No Hx HIV: No Additional medical history: lupus, Raynaud Disease - Surgical History Hx Coronary Stent: No Hx Open Heart Surgery: No Hx Pacemaker: No Hx Internal Defibrillator: No Hx Cholecystectomy: No Hx Appendectomy: No Hx Breast Surgery: No Additional Surgical History: x4 - Social History Smoking Status: Never Smoker Substance Use Type: None - Medications Home Medications: Home Medications Medication Instructions Recorded Confirmed Last Taken Type Aspirin [Aspirin BABY CHEW TAB] 81 mg PO ONCE 10/25/13 05/24/15 11/26/14 21:00 History NIFEdipine [NIFEdipine ER] 60 mg PO DAILY 10/25/13 05/24/15 02/13/15 History hydrOXYzine HCL [Atarax] 25 mg PO BID 11/27/14 05/24/15 02/13/15 History oxyCODONE /ACETAMINOPHEN [Percocet 1 tab PO Q6HR PRN #14 tablet 11/27/14 05/24/15 Unknown Rx 5/325 mg] predniSONE [Deltasone] 20 mg PO BID #8 tablet 11/27/14 05/24/15 02/12/15 Rx Gabapentin 300 mg PO HS 02/13/15 05/24/15 Unknown History Hydroxychloroquine 200 mg PO DAILY 02/13/15 05/24/15 02/13/15 History Mycophenolate [Cellcept] 1,000 mg PO BID 02/13/15 05/24/15 02/12/15 History Acetaminophen/Codeine [Tylenol 1 tab PO Q8H PRN #15 tab 10/13/17 Unknown Rx /Codeine # 3 tab] Ondansetron [Zofran Odt] 4 mg PO Q8HR PRN #14 tab.rapdis 06/09/20 Unknown Rx traMADoL [Ultram] 50 mg PO Q6HR PRN #14 tablet 06/09/20 Unknown Rx ED Physical Exam - General Limitations: No Limitations General appearance: alert, in no apparent distress - Head Head exam: Present: atraumatic, normocephalic, normal inspection - Eye Eye exam: Present: normal appearance - ENT ENT exam: Present: normal exam, normal orophraynx, mucous membranes moist - Neck Neck exam: Present: normal inspection, full ROM. Absent: tenderness, meningismus - Respiratory Respiratory exam: Present: normal lung sounds bilaterally - Cardiovascular Cardiovascular Exam: Present: regular rate, normal rhythm, normal heart sounds - GI/Abdominal GI/Abdominal exam: Present: soft, normal bowel sounds. Absent: distended, tenderness, guarding, rebound, rigid, organomegaly, mass, bruit, pulsatile mass, hernia - Extremities Exam Extremities exam: Present: normal inspection, full ROM, normal capillary refill. Absent: tenderness, pedal edema, joint swelling - Back Exam Back exam: Present: normal inspection, full ROM. Absent: CVA tenderness (R), CVA tenderness (L) - Neurological Exam Neurological exam: Present: alert, oriented X3, CN II-XII intact, normal gait, reflexes normal. Absent: motor sensory deficit - Psychiatric Psychiatric exam: Present: normal mood - Skin Skin exam: Present: warm, intact, normal color ED Course Vital Signs 06/09/20 06/09/20 06/09/20 10:26 12:38 12:45 Temperature 98 F Pulse Rate 96 H 78 Respiratory 18 14 Rate Blood Pressure 141/102 126/88 O2 Sat by Pulse 97 100 100 Oximetry 06/09/20 06/09/20 06/09/20 13:00 13:15 13:30 Temperature Pulse Rate 69 69 70 Respiratory 25 H 14 14 Rate Blood Pressure 136/90 136/90 124/79 O2 Sat by Pulse 98 100 99 Oximetry 06/09/20 06/09/20 06/09/20 13:45 14:00 14:15 Temperature Pulse Rate 67 69 71 Respiratory 18 16 17 Rate Blood Pressure 124/79 132/88 132/88 O2 Sat by Pulse 100 100 100 Oximetry 06/09/20 06/09/20 06/09/20 14:31 14:45 15:01 Temperature Pulse Rate 74 68 77 Respiratory 17 21 12 Rate Blood Pressure 126/82 126/82 87/64 O2 Sat by Pulse 100 100 100 Oximetry 06/09/20 06/09/20 15:31 16:01 Temperature Pulse Rate 69 Respiratory 12 12 Rate Blood Pressure 127/107 O2 Sat by Pulse 98 98 Oximetry ED Medical Decision Making - Lab Data Result diagrams: 06/09/20 10:53 06/09/20 10:48 - Radiology Data Radiology results: report reviewed - Medical Decision Making Patient is a 30 years old female with history of end-stage renal disease on hemodialysis. Patient also had history of lupus with frequent flareup. Patient presented to the ER complaining of diffuse abdominal pain, crampy in nature associated with watery diarrhea for the last few days. Patient denied any fever or chills. Patient also denied any shortness of breath, chest pain, headache, weakness numbness or tingling sensation. Patient stated that her abdominal pain is similar to what she have before and she is refusing imaging. Patient received morphine 4 mg x 2 and Zofran. Labs reviewed and is unremarkable except for her chronic kidney failure with a potassium of 4.9. Acute abdominal x-ray series with chest x-ray is negative for acute finding. Patient stated that she is due for dialysis tomorrow. Blood pressure improved s ignificantly after pain medicine with current blood pressure of 126/86. Patient given prescription for Ultram and advised to follow-up with her primary doctor in the next 2 to 3 days and to return to the ER she develop any new symptoms. Critical care attestation.: If time is entered above; I have spent that time in minutes in the direct care of this critically ill patient, excluding procedure time. ED Disposition Clinical Impression: Abdominal pain, End stage renal disease Disposition: - TO HOME OR SELFCARE Is pt being admited?: No Condition: Stable Instructions: Chronic Kidney Disease (ED), Abdominal Pain (ED) Prescriptions: traMADoL [Ultram] 50 mg PO Q6HR PRN #14 tablet PRN Reason: Pain Ondansetron [Zofran Odt] 4 mg PO Q8HR PRN #14 tab.rapdis PRN Reason: Nausea And Vomiting Referrals: PRIMARY CARE,MD [Primary Care Provider] - 3-5 Days
[2020-06-09] MEDS ORDERED: HYDROmorphone 1 MG/1 ML INJ IM ONE (14:12)
--- NOTE | 2020-06-09 15:13 | XRay Report ---
ABDOMEN 3 VIEW(S) INDICATION / CLINICAL INFORMATION: abdominal pain. Nausea and vomiting. COMPARISON: None available. FINDINGS: TUBES / LINES: None. BOWEL GAS PATTERN: No significant abnormality. FREE AIR / EXTRALUMINAL GAS: None seen. ADDITIONAL FINDINGS: No significant additional findings. CHEST: Lung bases appear clear. IMPRESSION: 1. No acute findings. Signer Name: Mo Lagunas MD Signed: 06/09/2020 3:08 PM Workstation Name: [id number]
[2020-06-09 16:01] VITALS: BP 127/107
== END 2020-06-09 16:05 | disposition home or self-care (01) ==
LOC: ED 10:22
DX: I12.0 Hypertensive chronic kidney disease with stage 5 chronic kidney disease or end stage renal disease (principal); N18.6 End stage renal disease; R10.9 Unspecified abdominal pain; I25.2 Old myocardial infarction; M19.90 Unspecified osteoarthritis, unspecified site; Z88.8 Allergy status to other drugs, medicaments and biological substances; Z79.899 Other long term (current) drug therapy; Z99.2 Dependence on renal dialysis
CPT/HCPCS: 36415; 74022; 80053; 83690; 84703; 85025; 96372; 99283; J2270; J2405; J1170

== ENCOUNTER 2021-03-16 15:04 | Emergency (ER) | payer MEDICARE ==
[2021-03-16 15:43] VITALS: BP 159/103
--- NOTE | 2021-03-16 15:58 | Event Note ---
ED Screening Note Date of service: 03/16/21 Time: 15:57 ED Screening Note: Patient states she has felt nauseous with dizziness for the past 2 days History of lupus States "my stomach feels sour" This initial assessment/diagnostic orders/clinical plan/treatment(s) is/are subject to change based on patients health status, clinical progression and re- assessment by fellow clinical providers in the ED. Further treatment and workup at subsequent clinical providers discretion. Patient/guardian urged not to elope from the ED as their condition may be serious if not clinically assessed and managed. Initial orders include: Labs EKG <[place]X [place] - Last Filed: 03/16/21 15:57> ED Screening Note: This initial assessment/diagnostic orders/clinical plan/treatment(s) is/are subject to change based on patients health status, clinical progression and re- assessment by fellow clinical providers in the ED. Further treatment and workup at subsequent clinical providers discretion. Patient/guardian urged not to elope from the ED as their condition may be serious if not clinically assessed and managed. Initial orders include: <NOÉ ROJO - Last Filed: 03/16/21 22:15>
[2021-03-16 16:30] LABS: Basophils % (Auto) 0.8 % (0.0-1.8); Eosinophils # (Auto) 0.3 K/mm3 (0.0-0.4); Eosinophils % (Auto) 4.9 % (0.0-4.3); Hematocrit 21.7 % (30.3-42.9); Hemoglobin 7.6 gm/dl (10.1-14.3); Lymphocytes # (Auto) 1.3 K/mm3 (1.2-5.4); Lymphocytes % (Auto) 23.7 % (13.4-35.0); Mean Corpuscular HGB Conc 35 % (30-34); Mean Corpuscular Volume 83 fl (79-97); Monocytes # (Auto) 0.5 K/mm3 (0.0-0.8); Monocytes % (Auto) 10.1 % (0.0-7.3); Platelet Count 272 K/mm3 (140-440); Red Blood Count 2.62 M/mm3 (3.65-5.03); Red Cell Distribution Width 14.3 % (13.2-15.2)
[2021-03-16 16:42] LABS: Albumin 3.8 g/dL (3.9-5); Calcium 7.6 mg/dL (8.4-10.2)
[2021-03-16 16:59] LABS: Chol/HDL Ratio 3.3 %
[2021-03-16] MEDS ORDERED: FAMOTIDINE 20 MG TAB PO ONE (21:05)
[2021-03-16] MEDS ORDERED: ONDANSETRON 4 MG ODT TAB PO ONE (21:05)
[2021-03-16] MEDS ORDERED: SODIUM POLYSTYRENE 15 GM/60 ML ORAL LIQD PO ONE (21:05)
--- NOTE | 2021-03-16 21:09 | Emergency Department Report ---
- General Chief complaint: Weakness Stated complaint: STOMACH PAIN/CANT DRINK WATER USE BATHROOM Time Seen by Provider: 03/16/21 15:56 Source: patient Mode of arrival: Wheelchair Limitations: No Limitations - History of Present Illness Initial comments: Chief complaint: "Sour stomach, weak, feels like I am going to pass out." HPI: This is a 31-year-old female with history of end-stage renal disease on hemodialysis, SLE, [place], hypertension and GERD who presents with "sour stomach" vomiting diarrhea fatigue for 2 days. Patient has been severely weak. Her stomach just feels upset. No discrete pain. She has used Pepcid with mild relief. She denies fever, chest pain, shortness of breath. She has not had dialysis in 3 months. She states that "I just do not want to do it." She has considered home dialysis. She continues to be able to urinate. She has a left upper extremity bicep fistula. MD Complaint: generalized weakness -: Gradual, days(s) (2 days) Location: generalized Severity: severe Consistency: constant Improves with: none Worsens with: none Associated Symptoms: nausea/vomiting, other (Stomach upset, diarrhea) - Related Data Home Medications Medication Instructions Recorded Confirmed Last Taken Aspirin [Aspirin BABY CHEW TAB] 81 mg PO ONCE 10/25/13 05/24/15 11/26/14 21:00 NIFEdipine [NIFEdipine ER] 60 mg PO DAILY 10/25/13 05/24/15 02/13/15 hydrOXYzine HCL [Atarax] 25 mg PO BID 11/27/14 05/24/15 02/13/15 Gabapentin 300 mg PO HS 02/13/15 05/24/15 Unknown Hydroxychloroquine 200 mg PO DAILY 02/13/15 05/24/15 02/13/15 Mycophenolate [Cellcept] 1,000 mg PO BID 02/13/15 05/24/15 02/12/15 Previous Rx's Medication Instructions Recorded Last Taken Type oxyCODONE /ACETAMINOPHEN [Percocet 1 tab PO Q6HR PRN #14 tablet 11/27/14 Unknown Rx 5/325 mg] predniSONE [Deltasone] 20 mg PO BID #8 tablet 11/27/14 02/12/15 Rx Acetaminophen/Codeine [Tylenol 1 tab PO Q8H PRN #15 tab 10/13/17 Unknown Rx /Codeine # 3 tab] Ondansetron [Zofran Odt] 4 mg PO Q8HR PRN #14 tab.rapdis 06/09/20 Unknown Rx traMADoL [Ultram] 50 mg PO Q6HR PRN #14 tablet 06/09/20 Unknown Rx Allergies Allergy/AdvReac Type Severity Reaction Status Date / Time hydromorphone [From Dilaudid] Allergy Hives Verified 03/16/21 15:44 ED Review of Systems ROS: Stated complaint: STOMACH PAIN/CANT DRINK WATER USE BATHROOM Other details as noted in HPI Comment: All other systems reviewed and negative Constitutional: malaise. denies: chills, fever Respiratory: denies: cough, shortness of breath Cardiovascular: denies: chest pain Gastrointestinal: nausea, vomiting, diarrhea ED Past Medical Hx - Past Medical History Previous Medical History?: Yes Hx Hypertension: Yes Hx Heart Attack/AMI: Yes ([place] 2011,) Hx Congestive Heart Failure: No Hx Diabetes: No Hx Deep Vein Thrombosis: No Hx Pulmonary Embolism: No Hx Renal Disease: No Hx Sickle Cell Disease: No Hx Arthritis: Yes Hx Kidney Stones: No Hx Asthma: No Hx COPD: No Hx Tuberculosis: No Hx HIV: No Additional medical history: lupus, Raynaud Disease - Surgical History Past Surgical History?: Yes Hx Coronary Stent: No Hx Open Heart Surgery: No Hx Pacemaker: No Hx Internal Defibrillator: No Hx Cholecystectomy: No Hx Appendectomy: No Hx Breast Surgery: No Additional Surgical History: x4 - Family History Family history: hypertension - Social History Smoking Status: Current Some Day Smoker Substance Use Type: None - Medications Home Medications: Home Medications Medication Instructions Recorded Confirmed Last Taken Type Aspirin [Aspirin BABY CHEW TAB] 81 mg PO ONCE 10/25/13 05/24/15 11/26/14 21:00 History NIFEdipine [NIFEdipine ER] 60 mg PO DAILY 10/25/13 05/24/15 02/13/15 History hydrOXYzine HCL [Atarax] 25 mg PO BID 11/27/14 05/24/15 02/13/15 History oxyCODONE /ACETAMINOPHEN [Percocet 1 tab PO Q6HR PRN #14 tablet 11/27/14 05/24/15 Unknown Rx 5/325 mg] predniSONE [Deltasone] 20 mg PO BID #8 tablet 11/27/14 05/24/15 02/12/15 Rx Gabapentin 300 mg PO HS 02/13/15 05/24/15 Unknown History Hydroxychloroquine 200 mg PO DAILY 02/13/15 05/24/15 02/13/15 History Mycophenolate [Cellcept] 1,000 mg PO BID 02/13/15 05/24/15 02/12/15 History Acetaminophen/Codeine [Tylenol 1 tab PO Q8H PRN #15 tab 10/13/17 Unknown Rx /Codeine # 3 tab] Ondansetron [Zofran Odt] 4 mg PO Q8HR PRN #14 tab.rapdis 06/09/20 Unknown Rx traMADoL [Ultram] 50 mg PO Q6HR PRN #14 tablet 06/09/20 Unknown Rx ED Physical Exam - General Limitations: No Limitations General appearance: alert, in no apparent distress - Head Head exam: Present: atraumatic, normocephalic - Eye Eye exam: Present: normal appearance - ENT ENT exam: Present: mucous membranes moist - Neck Neck exam: Present: normal inspection, full ROM - Respiratory Respiratory exam: Present: normal lung sounds bilaterally. Absent: respiratory distress, wheezes, rales, rhonchi - Cardiovascular Cardiovascular Exam: Present: regular rate, tachycardia, normal heart sounds. Absent: systolic murmur, diastolic murmur, rubs, gallop - GI/Abdominal GI/Abdominal exam: Present: soft, normal bowel sounds. Absent: distended, tenderness, rebound, rigid - Extremities Exam Extremities exam: Present: normal inspection - Neurological Exam Neurological exam: Present: alert, oriented X3 - Psychiatric Psychiatric exam: Present: normal affect, normal mood - Skin Skin exam: Present: warm, dry, intact, normal color. Absent: rash - Other Other exam information: Left bicep AV fistula present ED Course Vital Signs 03/16/21 15:39 Temperature 98 F Pulse Rate 111 H Respiratory 20 Rate Blood Pressure 159/103 O2 Sat by Pulse 100 Oximetry ED Medical Decision Making - Lab Data Result diagrams: 03/16/21 16:00 03/16/21 16:00 Laboratory Results - last 24 hr 03/16/21 03/16/21 03/16/21 16:00 16:00 16:00 WBC 5.3 RBC 2.62 L Hgb 7.6 L Hct 21.7 L MCV 83 MCH 29 MCHC 35 H RDW 14.3 Plt Count 272 Lymph % (Auto) 23.7 Mora % (Auto) 10.1 H Eos % (Auto) 4.9 H Baso % (Auto) 0.8 Lymph # (Auto) 1.3 Mora # (Auto) 0.5 Eos # (Auto) 0.3 Baso # (Auto) 0.0 Seg Neutrophils % 60.5 Seg Neutrophils # 3.2 Sodium 137 Potassium 6.0 H Chloride 96.6 L Carbon Dioxide 14 L Anion Gap 32 BUN 109 H Creatinine 22.8 H Estimated GFR 2 BUN/Creatinine Ratio 5 Glucose 69 Calcium 7.6 L Total Bilirubin 0.40 AST 13 ALT 9 Alkaline Phosphatase 112 Troponin T 0.104 H* Total Protein 7.0 Albumin 3.8 L Albumin/Globulin Ratio 1.2 Triglycerides 127 Cholesterol 109 LDL Cholesterol Direct 56 HDL Cholesterol 33 L Cholesterol/HDL Ratio 3.30 Lipase HCG, Qual Negative 03/16/21 16:00 WBC RBC Hgb Hct MCV MCH MCHC RDW Plt Count Lymph % (Auto) Mora % (Auto) Eos % (Auto) Baso % (Auto) Lymph # (Auto) Mora # (Auto) Eos # (Auto) Baso # (Auto) Seg Neutrophils % Seg Neutrophils # Sodium Potassium Chloride Carbon Dioxide Anion Gap BUN Creatinine Estimated GFR BUN/Creatinine Ratio Glucose Calcium Total Bilirubin AST ALT Alkaline Phosphatase Troponin T Total Protein Albumin Albumin/Globulin Ratio Triglycerides Cholesterol LDL Cholesterol Direct HDL Cholesterol Cholesterol/HDL Ratio Lipase 43 HCG, Qual - EKG Data EKG shows normal: sinus rhythm, axis, intervals Rate: tachycardia - EKG Data Interpretation: nonspecific ST-T wave yan 03/16/21 21:09 EKG obtained 1548 EKG interpreted by nj Sinus tachycardia rate 110 beats per minute normal axis normal intervals no ST elevation nonspecific T wave pattern - Medical Decision Making 1. Uremic complications due to noncompliance with dialysis: Suspect fatigue weakness related to severe uremia as well as ileus causing her "sour stomach", diarrhea and vomiting. Significant elevation of BUN. Hyperkalemia and metabolic acidosis noted. 2. Elevated troponin: She does not have signs or symptoms of ACS currently. I suspect elevated troponin caused by decreased kidney clearance. However will need serial troponin values to rule out ACS. I spoke with patient at length witnessed by registered nurse. Patient understands the risk of harm of being discharged. She states that she cannot lose her job. She is scheduled to work 10 AM tomorrow. I have given patient Faustina here in the emergency department to address hyperkalemia. I have encouraged her to return tomorrow for admission and urgent dialysis when completes her workday. She understands the risk of arrhythmia and if being discharged. She has decided to leave AGAINST MEDICAL ADVICE. She has decision-making capacity. I also informed her that she will likely be refused dialysis at her home clinic until cleared in the hospital emergency department. Critical care attestation.: If time is entered above; I have spent that time in minutes in the direct care of this critically ill patient, excluding procedure time. ED Disposition Clinical Impression: Uremia syndrome, Ileus, Hyperkalemia, Encounter for hemodialysis for ESRD, Metabolic acidosis, Systemic lupus erythematosus Disposition: DC-01 TO HOME OR SELFCARE Is pt being admited?: No Does the pt Need Aspirin: No Condition: Stable Additional Instructions: Please return tomorrow to be admitted for urgent dialysis. Please return as soon as possible. Please call [phone] if your symptoms worsen. Forms: AMA Form
--- NOTE | 2021-03-17 15:00 | Electrocardiograph Report ---
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
== END 2021-03-16 22:00 | disposition home or self-care (01) ==
LOC: ED 15:04
DX: I12.0 Hypertensive chronic kidney disease with stage 5 chronic kidney disease or end stage renal disease (principal); N18.6 End stage renal disease; K56.7 Ileus, unspecified; E87.5 Hyperkalemia; E87.2 Acidosis; I25.2 Old myocardial infarction; M19.90 Unspecified osteoarthritis, unspecified site; F17.200 Nicotine dependence, unspecified, uncomplicated; Z99.2 Dependence on renal dialysis; Z79.899 Other long term (current) drug therapy; Z98.890 Other specified postprocedural states; Z88.8 Allergy status to other drugs, medicaments and biological substances
CPT/HCPCS: 36415; 80053; 80061; 83690; 84484; 84703; 85025; 93005; Q0162

== ENCOUNTER 2021-03-17 17:00 | Emergency (ER) | payer MEDICARE | END 2021-03-17 17:15 | disposition left against medical advice (07) | LOC: ED 17:00 | DX: Z53.21 Procedure and treatment not carried out due to patient leaving prior to being seen by health care provider (principal) ==

== ENCOUNTER 2021-04-03 07:04 | Observation (INO) | payer MEDICARE ==
--- NOTE | 2021-04-03 08:55 | Emergency Department Report ---
- General Chief complaint: Medical Clearance Stated complaint: DIALYSIS Time Seen by Provider: 04/03/21 08:20 Source: patient Mode of arrival: Ambulatory Limitations: No Limitations - History of Present Illness Initial comments: Chief complaint: "I am just tired. I need transfusion during dialysis." HPI: This is a 31-year-old female with history of SLE, end-stage renal disease on hemodialysis Wednesday, hypertension, [place], Raynaud's disease who presents with fatigue and generalized weakness. She was recently admitted at [facility]. At that time she was found to be severely anemic. After being evaluated on Wednesday at hemodialysis clinic, staff called her last night referring her to the emergency department. She was informed that she needed transfusion during dialysis while observed in the hospital. She has not received COVID-19 vaccine. She denies fever, headache, cough, chest pain, vomiting diarrhea. She denies loss of taste or smell. [employer] is Dr. Terese CLARK Complaint: generalized weakness -: Gradual, week(s) (1 week generalized weakness) Location: generalized Severity: severe (Severe fatigue) Consistency: constant Improves with: none Worsens with: none Context: recent illness (Recently admitted P100 for dialysis treatment, diagnosed with severe anemia) Associated Symptoms: other (Severe fatigue, lack of energy) - Related Data Home Medications Medication Instructions Recorded Confirmed Last Taken Aspirin [Aspirin BABY CHEW TAB] 81 mg PO ONCE 10/25/13 05/24/15 11/26/14 21:00 NIFEdipine [NIFEdipine ER] 60 mg PO DAILY 10/25/13 05/24/15 02/13/15 hydrOXYzine HCL [Atarax] 25 mg PO BID 11/27/14 05/24/15 02/13/15 Gabapentin 300 mg PO HS 02/13/15 05/24/15 Unknown Hydroxychloroquine 200 mg PO DAILY 02/13/15 05/24/15 02/13/15 Mycophenolate [Cellcept] 1,000 mg PO BID 02/13/15 05/24/15 02/12/15 Previous Rx's Medication Instructions Recorded Last Taken Type oxyCODONE /ACETAMINOPHEN [Percocet 1 tab PO Q6HR PRN #14 tablet 11/27/14 Unknown Rx 5/325 mg] predniSONE [Deltasone] 20 mg PO BID #8 tablet 11/27/14 02/12/15 Rx Acetaminophen/Codeine [Tylenol 1 tab PO Q8H PRN #15 tab 10/13/17 Unknown Rx /Codeine # 3 tab] Ondansetron [Zofran Odt] 4 mg PO Q8HR PRN #14 tab.rapdis 06/09/20 Unknown Rx traMADoL [Ultram] 50 mg PO Q6HR PRN #14 tablet 06/09/20 Unknown Rx Allergies Allergy/AdvReac Type Severity Reaction Status Date / Time hydromorphone [From Dilaudid] Allergy Hives Verified 03/16/21 15:44 ED Review of Systems ROS: Stated complaint: DIALYSIS Other details as noted in HPI Comment: All other systems reviewed and negative Constitutional: denies: chills, fever, malaise Respiratory: denies: cough, shortness of breath Cardiovascular: denies: chest pain Gastrointestinal: denies: abdominal pain, nausea, vomiting Neurological: denies: headache ED Past Medical Hx - Past Medical History Previous Medical History?: Yes Hx Hypertension: Yes Hx Heart Attack/AMI: Yes ([place] 2011,) Hx Congestive Heart Failure: No Hx Diabetes: No Hx Deep Vein Thrombosis: No Hx Pulmonary Embolism: No Hx Renal Disease: No Hx Sickle Cell Disease: No Hx Arthritis: Yes Hx Kidney Stones: No Hx Asthma: No Hx COPD: No Hx Tuberculosis: No Hx HIV: No Additional medical history: lupus, Raynaud Disease - Surgical History Past Surgical History?: Yes Hx Coronary Stent: No Hx Open Heart Surgery: No Hx Pacemaker: No Hx Internal Defibrillator: No Hx Cholecystectomy: No Hx Appendectomy: No Hx Breast Surgery: No Additional Surgical History: x4 - Social History Smoking Status: Current Some Day Smoker Substance Use Type: None - Medications Home Medications: Home Medications Medication Instructions Recorded Confirmed Last Taken Type Aspirin [Aspirin BABY CHEW TAB] 81 mg PO ONCE 10/25/13 05/24/15 11/26/14 21:00 History NIFEdipine [NIFEdipine ER] 60 mg PO DAILY 10/25/13 05/24/15 02/13/15 History hydrOXYzine HCL [Atarax] 25 mg PO BID 11/27/14 05/24/15 02/13/15 History oxyCODONE /ACETAMINOPHEN [Percocet 1 tab PO Q6HR PRN #14 tablet 11/27/14 05/24/15 Unknown Rx 5/325 mg] predniSONE [Deltasone] 20 mg PO BID #8 tablet 11/27/14 05/24/15 02/12/15 Rx Gabapentin 300 mg PO HS 02/13/15 05/24/15 Unknown History Hydroxychloroquine 200 mg PO DAILY 02/13/15 05/24/15 02/13/15 History Mycophenolate [Cellcept] 1,000 mg PO BID 02/13/15 05/24/15 02/12/15 History Acetaminophen/Codeine [Tylenol 1 tab PO Q8H PRN #15 tab 10/13/17 Unknown Rx /Codeine # 3 tab] Ondansetron [Zofran Odt] 4 mg PO Q8HR PRN #14 tab.rapdis 06/09/20 Unknown Rx traMADoL [Ultram] 50 mg PO Q6HR PRN #14 tablet 06/09/20 Unknown Rx ED Physical Exam - General Limitations: No Limitations General appearance: alert, in no apparent distress, other (Obviously pale) - Head Head exam: Present: atraumatic, normocephalic - Eye Eye exam: Present: normal appearance - ENT ENT exam: Present: mucous membranes moist - Neck Neck exam: Present: normal inspection, full ROM - Respiratory Respiratory exam: Present: normal lung sounds bilaterally. Absent: respiratory distress, wheezes, rales, rhonchi - Cardiovascular Cardiovascular Exam: Present: regular rate, normal rhythm, normal heart sounds. Absent: systolic murmur, diastolic murmur, rubs, gallop - GI/Abdominal GI/Abdominal exam: Present: soft, normal bowel sounds. Absent: distended, tenderness, guarding, rebound - Extremities Exam Extremities exam: Present: normal inspection - Neurological Exam Neurological exam: Present: alert, oriented X3 - Psychiatric Psychiatric exam: Present: normal affect, normal mood - Skin Skin exam: Present: warm, dry, intact, normal color. Absent: rash ED Course Vital Signs 04/03/21 04/03/21 04/03/21 07:13 09:01 09:31 Temperature 98.7 F Pulse Rate 96 H 98 H 95 H Respiratory 18 24 21 Rate Blood Pressure 142/100 O2 Sat by Pulse 99 98 Oximetry ED Medical Decision Making - Lab Data Result diagrams: 04/03/21 07:28 04/03/21 07:28 - Medical Decision Making 1. Anemia chronic disease: Patient has been noncompliant with dialysis treatment for several months. Patient will need erythropoietin She has recently restarted dialysis treatment with Dr. Gudino. Dr. Gudino was concerned for fluid overload while receiving transfusion. He explained that patient will need transfusion coordinated with dialysis treatment prompting urgent management. Dr. Gudino has ordered both transfusion of pRBCs and dialysis. 2. End-stage renal disease on hemodialysis: Normal potassium, no respiratory distress. HD arranged today. Patient is admitted to the hospitalist service Critical care attestation.: If time is entered above; I have spent that time in minutes in the direct care of this critically ill patient, excluding procedure time. ED Disposition Clinical Impression: Anemia in chronic kidney disease, on chronic dialysis, End stage renal disease on dialysis Disposition: OP ADMIT IP TO THIS HOSP Is pt being admited?: Yes Does the pt Need Aspirin: No Condition: Stable
[2021-04-03 10:10] LABS: Albumin 3.7 g/dL (3.9-5); Calcium 8.7 mg/dL (8.4-10.2)
[2021-04-03 10:16] LABS: Basophils # (Auto) 0.1 K/mm3 (0.0-0.1); Eosinophils # (Auto) 0.1 K/mm3 (0.0-0.4); Eosinophils % (Auto) 2.8 % (0.0-4.3); Hemoglobin 6.2 gm/dl (10.1-14.3); Lymphocytes # (Auto) 1.1 K/mm3 (1.2-5.4); Lymphocytes % (Auto) 22.2 % (13.4-35.0); Mean Corpuscular HGB Conc 36 % (30-34); Mean Corpuscular Volume 84 fl (79-97); Monocytes # (Auto) 0.8 K/mm3 (0.0-0.8); Monocytes % (Auto) 15.5 % (0.0-7.3); Platelet Count 212 K/mm3 (140-440); Red Blood Count 2.07 M/mm3 (3.65-5.03); Red Cell Distribution Width 14.8 % (13.2-15.2)
--- NOTE | 2021-04-03 11:01 | Consultation ---
History of Present Illness - Reason for Consult Consult date: 04/03/21 end stage renal disease - History of Present Illness The patient is a 31 year old female known to our service with history s ignificant for Obesity, Hypertension, Lupus, Anemia, ESRD HD (TTS) and Medical non-compliance who presented to [facility] ED 04/03 for treatment of anemia. Her Hemoglobin was 6.4 from the lab drawn on 04/01 at the dialysis clinic and she was advsied to go to ED for blood transfusion. Patent denies fever, chills, N, v, D, abd pain, melena, rectal bleeding, hematuria, CP, sob, dizziness or syncope. In the ED Hb is 6.2. Nephrology was consulted for further evaluation and management of ESRD. Past History Past Medical History: other (See HPI.) Medications and Allergies Allergies Allergy/AdvReac Type Severity Reaction Status Date / Time hydromorphone [From Dilaudid] Allergy Hives Verified 03/16/21 15:44 Home Medications Medication Instructions Recorded Confirmed Last Taken Type Aspirin [Aspirin BABY CHEW TAB] 81 mg PO ONCE 10/25/13 05/24/15 11/26/14 21:00 History NIFEdipine [NIFEdipine ER] 60 mg PO DAILY 10/25/13 05/24/15 02/13/15 History hydrOXYzine HCL [Atarax] 25 mg PO BID 11/27/14 05/24/15 02/13/15 History oxyCODONE /ACETAMINOPHEN [Percocet 1 tab PO Q6HR PRN #14 tablet 11/27/14 05/24/15 Unknown Rx 5/325 mg] predniSONE [Deltasone] 20 mg PO BID #8 tablet 11/27/14 05/24/15 02/12/15 Rx Gabapentin 300 mg PO HS 02/13/15 05/24/15 Unknown History Hydroxychloroquine 200 mg PO DAILY 02/13/15 05/24/15 02/13/15 History Mycophenolate [Cellcept] 1,000 mg PO BID 02/13/15 05/24/15 02/12/15 History Acetaminophen/Codeine [Tylenol 1 tab PO Q8H PRN #15 tab 10/13/17 Unknown Rx /Codeine # 3 tab] Ondansetron [Zofran Odt] 4 mg PO Q8HR PRN #14 tab.rapdis 06/09/20 Unknown Rx traMADoL [Ultram] 50 mg PO Q6HR PRN #14 tablet 06/09/20 Unknown Rx Review of Systems Constitutional: no weight loss, no weight gain, no fever, no chills, no anorexia, no fatigue Breasts: deferred Cardiovascular: high blood pressure, no chest pain, no orthopnea, no edema, no syncope, no lightheadedness, no shortness of breath, no leg edema Respiratory: no cough, no shortness of breath Gastrointestinal: no abdominal pain, no nausea, no vomiting, no diarrhea, no hematemesis, no BRBPR, no melena, no hematochezia Genitourinary Female: no dysuria, no hematuria Rectal: no bleeding Neurological: no seizures, no syncope, no convulsions, no aphasia, no change in speech, no change in mentation, no confusion Exam - Vital Signs Vital signs: Vital Signs Temp Pulse Resp Pulse Ox 98.7 F 96 H 18 99 04/03/21 07:13 04/03/21 07:13 04/03/21 07:13 04/03/21 07:13 Results - Lab Results 04/03/21 07:28 04/03/21 07:28 Most recent lab results Calcium 8.7 mg/dL (8.4-10.2) 04/03/21 07:28 Assessment and Plan 1. ESRD: Patient is on maintenance hemodialysis. Meds dosage based on GFR. Hemodialysis today, orders placed. 2. FEN: Monitor lytes and volume status. 3. Anemia, POA: 2/2 ESRD. Epogen with HD. 2 units of PRBC ordered. 4. H/o Lupus: Continue home meds. 5. Hypertension: Monitor BP. Adjust meds as appropriate. Compliance encouraged. Subjective: Patient was seen and examined at the bedside. General Appearance: General appearance: well-developed, appears stated age, not in distress HEENT: ATNC, pupils equal Neck: supple, trachea midline Respiratory: ctab Heart: regular, S1S2, no murmur Abdomen: soft, bowel sounds heard, not tender Integumentary: no rash, warm and dry Neurologic: AO, conversing, moving extremities Ext: no edema Hemodialysis access: L arm AVF
[2021-04-03] MEDS ORDERED: HEPARIN 10,000 UNITS/10 ML VIAL IV PRN (11:02)
[2021-04-03] MEDS ORDERED: EPOETIN ALFA-EPBX 20,000 UNIT/1 ML VIAL SUB-Q PRN (11:02)
[2021-04-03] MEDS ORDERED: SODIUM CHLORIDE 0.9% 500 ML 500 ML IV SCH (11:04)
[2021-04-03 11:53] LABS: Hematocrit 18.4 % (30.3-42.9)
[2021-04-03] MEDS ORDERED: SODIUM CHLORIDE 0.9% 100 ML IV PRN (12:02)
[2021-04-03 14:53] VITALS: BP 138/100
== END 2021-04-03 14:00 | disposition left against medical advice (07) ==
LOC: ED 07:04 → 4A 11:03
PROVIDERS: ADMIT Internal Medicine Nephrology; ATTEND Internal Medicine Nephrology
DX: I12.0 Hypertensive chronic kidney disease with stage 5 chronic kidney disease or end stage renal disease (principal); N18.6 End stage renal disease; D63.1 Anemia in chronic kidney disease; M19.90 Unspecified osteoarthritis, unspecified site; M32.9 Systemic lupus erythematosus, unspecified; F17.200 Nicotine dependence, unspecified, uncomplicated; Z99.2 Dependence on renal dialysis; Z79.82 Long term (current) use of aspirin; Z79.899 Other long term (current) drug therapy; Z98.890 Other specified postprocedural states
CPT/HCPCS: 36415; 80053; 85025; 86850; 86900; 86901; 86920; 99284; G0378